=== PATIENT | male | born 1950 | race Caucasian/White ===

== ENCOUNTER 2021-11-19 02:35 | Emergency (ER) | payer BC ==
[2021-12-11 16:41] LABS: CHLORIDE,CL 101 mmol/L (98-107); ESTIMATED GFR 72 mL/min (>=60); SODIUM,NA 137 mmol/L (136-145)
[2021-12-11 16:43] LABS: PTT,PARTIAL THROMBOPLSTIN TIME 30.7 SEC (20.5-30.9)
== END 2021-11-19 15:20 | disposition short-term general hospital (02) ==
LOC: VM.ED 02:35
DX: I44.7 Left bundle-branch block, unspecified (principal)
CPT/HCPCS: 36415; 80053; 82550; 83735; 83880; 84484; 85025; 85610; 85730; 93005; 96374; 99285-25

== ENCOUNTER 2022-10-07 14:06 | Inpatient (IN) | payer MEDICARE, OTHER ==
[2022-10-07] MEDS ORDERED: Sodium Chloride 0.9% 10 ML Syringe FLUSH PRN (14:13)
[2022-10-07] MEDS ORDERED: Aspirin 81 MG Tab.Chew PO ONE (14:14)
[2022-10-07] MEDS ORDERED: Nitroglycerin 0.4 MG Tab.SL SL ONE (14:14)
[2022-10-07 14:23] LABS: BASOPHILS PERCENT AUTO 0.1 % (0.2-1.2); EOSINOPHILS ABSOLUTE AUTO 0.1 x10^3/uL (0.0-0.5); EOSINOPHILS PERCENT AUTO 0.5 % (0.0-4.0); HEMOGLOBIN 16.6 g/dL (14.0-18.0); IMMATURE GRAN ABSOLUTE AUTO 0.01 x10^3/uL (0.00-0.07); LYMPHOCYTES ABSOLUTE AUTO 2.4 x10^3/uL (1.0-4.8); LYMPHOCYTES PERCENT AUTO 20.3 % (25.0-50.0); MEAN CORPUSCULAR HEMOGLOBIN 31.8 pg (26.0-32.0); MEAN CORPUSCULAR HGB CONC 36.1 g/dL (32.0-36.0); MEAN CORPUSCULAR VOLUME 88.1 fL (78.0-93.0); MONOCYTES ABSOLUTE AUTO 0.5 x10^3/uL (0.0-0.8); MONOCYTES PERCENT AUTO 4.3 % (2.0-11.0); NEUTROPHILS ABSOLUTE AUTO 8.8 x10^3/uL (1.8-7.7); NEUTROPHILS PERCENT AUTO 74.7 % (50.0-80.0); PLATELET COUNT,PLT 259 x10^3/uL (130-400); RED BLOOD CELL COUNT 5.22 x10^6/uL (4.5-6.0); WHITE BLOOD CELL COUNT,WBC 11.7 x10^3/uL (4.0-10.0)
[2022-10-07 14:38] LABS: PROTHROMBIN TIME 10.7 SEC (9.5-12.2)
[2022-10-07] MEDS ORDERED: cefTRIAXone 1 GM Vial IVPUSH ONE (14:54)
[2022-10-07 14:55] LABS: A/G RATIO 0.85; ALANINE AMINOTRANSFERASE,ALT 32 U/L (16-63); ALBUMIN 3.5 g/dL (3.4-5.0); ALKALINE PHOSPHATASE 107 U/L (46-116); ASPARTATE AMNIOTRANSFERASE,AST 18 U/L (15-37); BILIRUBIN TOTAL 0.5 mg/dL (0.2-1.0); BLOOD UREA NITROGEN,BUN 11 mg/dL (7-18); CARBON DIOXIDE,CO2 23 mmol/L (21-32); CHLORIDE,CL 102 mmol/L (98-107); CREATININE 0.9 mg/dL (0.70-1.30); GLUCOSE RANDOM 250 mg/dL (70-99); POTASSIUM,K 3.9 mmol/L (3.5-5.1); PRO B-TYPE NATRIUR PEPT,BNPPRO 758 pg/mL (<=125); PROTEIN TOTAL,TP 7.6 g/dL (6.4-8.2); SODIUM,NA 140 mmol/L (136-145)
[2022-10-07 14:58] LABS: ANION GAP 18.9 mmol/L (5-15); ESTIMATED GFR 92 mL/min (>=60)
[2022-10-07] MEDS ORDERED: Furosemide 20 MG/2 ML VIAL IV ONE (15:02)
[2022-10-07] MEDS ORDERED: cefTRIAXone 2 GM Vial IVPUSH ONE (15:30)
[2022-10-07] MEDS ORDERED: metFORMIN 500 MG Tab PO SCH (19:30)
[2022-10-07] MEDS ORDERED: Ondansetron 4 MG Tab.DIS PO PRN (20:28)
[2022-10-07] MEDS ORDERED: UBIDECARENONE 100 MG PO SCH (21:00)
[2022-10-07] MEDS ORDERED: atorvaSTATin 40 MG Tab PO SCH (21:00)
[2022-10-07] MEDS: Ticagrelor 90 MG Tab PO SCH (21:10)
[2022-10-07] MEDS: Lisinopril 20 MG Tab PO SCH (21:11)
[2022-10-08 06:56] LABS: BASOPHILS PERCENT AUTO 0.1 % (0.2-1.2); EOSINOPHILS ABSOLUTE AUTO 0.1 x10^3/uL (0.0-0.5); EOSINOPHILS PERCENT AUTO 1.4 % (0.0-4.0); HEMATOCRIT 38.9 % (40.0-52.0); HEMOGLOBIN 14.2 g/dL (14.0-18.0); IMMATURE GRAN ABSOLUTE AUTO 0.03 x10^3/uL (0.00-0.07); LYMPHOCYTES ABSOLUTE AUTO 2.7 x10^3/uL (1.0-4.8); MEAN CORPUSCULAR HEMOGLOBIN 31.8 pg (26.0-32.0); MEAN CORPUSCULAR HGB CONC 36.5 g/dL (32.0-36.0); MEAN CORPUSCULAR VOLUME 87.2 fL (78.0-93.0); MONOCYTES ABSOLUTE AUTO 0.7 x10^3/uL (0.0-0.8); NEUTROPHILS ABSOLUTE AUTO 4.9 x10^3/uL (1.8-7.7); NEUTROPHILS PERCENT AUTO 58.1 % (50.0-80.0); PLATELET COUNT,PLT 218 x10^3/uL (130-400); RED BLOOD CELL COUNT 4.46 x10^6/uL (4.5-6.0); WHITE BLOOD CELL COUNT,WBC 8.4 x10^3/uL (4.0-10.0)
[2022-10-08] MEDS ORDERED: Levothyroxine 125 MCG Tab PO SCH (07:00)
[2022-10-08 07:13] LABS: ANION GAP 12.1 mmol/L (5-15); CALCIUM 8.8 mg/dL (8.5-10.1); CREATININE 0.9 mg/dL (0.70-1.30); EST CRCL DRUG DOSING (CG) 71.4 mL/min; POTASSIUM,K 4.1 mmol/L (3.5-5.1)
[2022-10-08] MEDS: Ticagrelor 90 MG Tab PO SCH (08:37)
[2022-10-08] MEDS: Lisinopril 20 MG Tab PO SCH (08:37)
[2022-10-08] MEDS ORDERED: Furosemide 20 MG/2 ML VIAL IV ONE (08:45)
[2022-10-08] MEDS: Carvedilol 3.125 MG Tab PO SCH ×2 (08:58→09:04)
[2022-10-08] MEDS ORDERED: Enoxaparin 40 MG/0.4 ML Syringe SUBCUT SCH (09:00)
[2022-10-08] MEDS ORDERED: atorvaSTATin 40 MG Tab PO SCH (09:00)
[2022-10-08] MEDS ORDERED: Ezetimibe 10 MG Tab PO SCH (09:00)
[2022-10-08] MEDS ORDERED: Aspirin 81 MG Tab.EC PO SCH (09:00)
[2022-10-08] MEDS ORDERED: amLODIPine 5 MG Tab PO SCH (09:00)
[2022-10-08] MEDS ORDERED: LIRAGLUTIDE SQ SCH (09:00)
[2022-10-08] MEDS ORDERED: INSULIN DEGLUDEC SQ SCH (09:00)
[2022-10-08] MEDS ORDERED: cefTRIAXone 1 GM Vial IVPUSH SCH (15:00)
[2022-10-09] MEDS ORDERED: metFORMIN 500 MG Tab PO SCH (08:00)
[2022-10-09] MEDS ORDERED: Furosemide 20 MG Tab PO SCH (09:00)
[2022-10-09] MEDS ORDERED: Empagliflozin 25 MG Tab PO SCH (09:15)
== END 2022-10-08 13:37 | disposition home or self-care (01) | DRG 193 ==
LOC: VM.ED 14:06 → VM.MS 15:24
PROVIDERS: ADMIT Nurse Practitioner Family; ATTEND Internal Medicine
PROC: 5A09357 Assistance with Respiratory Ventilation, Less than 24 Consecutive Hours, Continuous Positive Airway Pressure (ICD-10-PCS; principal; 2022-10-07)
DX: J18.9 Pneumonia, unspecified organism (principal); J96.01 Acute respiratory failure with hypoxia; I11.0 Hypertensive heart disease with heart failure; I50.9 Heart failure, unspecified; E11.9 Type 2 diabetes mellitus without complications; E78.5 Hyperlipidemia, unspecified; G47.33 Obstructive sleep apnea (adult) (pediatric); E03.9 Hypothyroidism, unspecified; E66.9 Obesity, unspecified; E87.70 Fluid overload, unspecified; R09.02 Hypoxemia; H91.90 Unspecified hearing loss, unspecified ear; Z20.822 Contact with and (suspected) exposure to COVID-19; I25.10 Atherosclerotic heart disease of native coronary artery without angina pectoris; Z90.49 Acquired absence of other specified parts of digestive tract; Z90.79 Acquired absence of other genital organ(s); Z87.891 Personal history of nicotine dependence; Z85.51 Personal history of malignant neoplasm of bladder; Z68.34 Body mass index [BMI] 34.0-34.9, adult; Z79.4 Long term (current) use of insulin; Z79.84 Long term (current) use of oral hypoglycemic drugs; Z79.01 Long term (current) use of anticoagulants; Z79.82 Long term (current) use of aspirin; Z79.899 Other long term (current) drug therapy; I25.2 Old myocardial infarction; Z95.1 Presence of aortocoronary bypass graft; Z95.5 Presence of coronary angioplasty implant and graft
CPT/HCPCS: 36415; 71045; 80048; 80053; 82947; 83735; 83880; 84484; 85025; 85610; 93005; 93010; 99284; 99285; A9270-GY; J0696; J1650; J1940; J3490; U0002